=== PATIENT | male | born 2000 | race Caucasian/White ===

== ENCOUNTER 2020-07-29 23:28 | Emergency (ER) | payer OTHER ==
[~2020-07-29] VITALS: Ht 175.3 cm; Wt 72.6 kg
[~2020-07-29 23:28] MED LIST: ACETAMINOPHEN-1 EAC1 PO; NOHOMEMEDICATIONS
[2020-07-29 23:55] LABS: ABSOLUTE EOSINOPHILS 0.2 thou/uL (0.0-0.7); ABSOLUTE LYMPHOCYTES 2.6 thou/uL (0.8-5.3); ABSOLUTE MONOCYTES 0.6 thou/uL (0.0-1.2); ABSOLUTE NEUTROPHILS 5.2 thou/uL (1.6-8.1); BASOPHILS 0.5 %; EOSINOPHILS 2.2 %; HEMATOCRIT 45.8 % (42.0-52.0); HEMOGLOBIN 16.3 gm/dL (14.0-18.0); LYMPHOCYTES 30.1 %; MCH 29.2 pg (26.0-34.0); MCHC 35.5 g/dL (28.0-37.0); MCV 82.2 fL (80.0-100.0); MONOCYTES 6.4 %; MPV 9.2 fl. (7.2-11.1); NUCLEATED RBCS 0 /100WBC; PLATELET COUNT* 230 thou/uL (150-400); POLYS 60.8 %; RBC 5.57 mil/uL (4.50-6.00); WBC 8.6 thou/uL (4.0-11.0)
[2020-07-30 00:12] LABS: ANION GAP 11 mmol/L (7-16); BUN 16 mg/dL (7-18); CALCIUM 8.8 mg/dL (8.5-10.1); CHLORIDE 102 mmol/L (98-107); CO2 26 mmol/L (21-32); CREATININE 1.2 mg/dL (0.6-1.3); GLUCOSE 99 mg/dL (70-99); POTASSIUM 3.7 mmol/L (3.5-5.1); SODIUM 139 mmol/L (136-145)
[2020-07-30 00:25] LABS: ALBUMIN 4.7 g/dL (3.4-5.0); ALKALINE PHOSPHATASE 75 U/L (46-116); CK-MB MASS < 0.5 ng/mL (<0.5-3.6); SGOT 13 U/L (15-37); SGPT 20 U/L (30-65); TOTAL BILIRUBIN 0.5 mg/dL (<0.1-1.0); TOTAL PROTEIN 8.3 g/dL (6.4-8.2)
[2020-07-30 00:38] LABS: APTT 27.7 Seconds (25.0-31.3); INR 1.1; PROTIME 11.5 Seconds (9.20-11.50)
[2020-07-30 00:45] LABS: NT-PRO BRAIN NAT PEPTIDE 27 pg/mL (<300)
[2020-07-30 01:22] VITALS: BP 148/89
--- NOTE | 2020-08-01 17:30 | EKG ---
[place] [address] ELECTROCARDIOGRAM REPORT Name: RYAN LOPEZ Room: [facility]#: [id number] Admission: 07/29/20 Attend Phys: Discharge: 07/30/20 Date of : 89 Date of Service: 07/29/20 2332 Report #: [id number] THIS REPORT FOR: //name// [facility] ED Test Date: 2020-07-29 Test Time: 23:32:40 Pat Name: RYAN LOPEZ Department: Room: Gender: Art Educator: : 2000 Requested By: Darion Guerra Order Number: [id number] MD: Christian Verduzco Measurements Intervals [place] Rate: 74 P: 82 VA: 163 QRS: 85 QRSD: 105 T: 41 QT: 375 QTc: 416 Interpretive Statements Sinus rhythm ST elev, probable normal early repol pattern No previous ECG available for comparison Electronically Signed On 08-01-2020 17:30:32 CDT by Christian Verduzco [email or web address] <ELECTRONICALLY SIGNED> By: Christian Verduzco MD, [facility] 08/01/20 1730 233 31 Christian Verduzco MD, [facility] /EPI
== END 2020-07-30 01:23 | disposition home or self-care (01) ==
LOC: M.ERS 23:28
PROVIDERS: Emergency Medicine
DX: R07.89 Other chest pain (principal)